=== PATIENT | male | born 1940 | race Caucasian/White ===

== ENCOUNTER 2024-03-08 19:40 | Observation (INO) ==
--- NOTE | 2024-03-08 19:50 | DR.CP ---
HPI Time Seen Time Seen by Provider: 03/08/24 19:50 Complaint Chief Complaint Doctor Comments: Patient lives by himself in a senior apartment. He has a son and daughter ( Daryl Ulloa and Melissa Mcmillan) the son lives in [place] and the daughter lives out of town. Every day patient contacts his daughter at a designated time. Two to three days ago patient fell to the floor in his apartment and was unable to get up. The son sent someone to check on him. Subsequently the son drove over to his aprtament in [place] and had to have the police break and enter to get access to the patient. Patient refused to go to the hospital. So Son brought him for [place] where he stayed for 2 days. Son stated that he observed that patient was very weak , he fell twice at son's house and after the second fall today Son called Sports Physiotherapist to bring the Patient to [facility] ED.Patient has a h/o: Cabg heart valve 2007, a rthritis,Dememntia,Dyslipdemia,hypertension. ROS Review of Systems Constitutional: Fever Eyes: No Symptoms Reported ENTM: No Symptoms Reported Respiratoy: No Symptoms Reported Cardiovascular: No Symptoms Reported Gastrointestinal/Abdominal: No Symptoms Reported Genitourinary: No Symptoms Reported Neurological: No Symptoms Reported Musculoskeletal: No Symptoms Reported Integumentary: No Symptoms Reported Hematologic/Lymphatic: No Symptoms Reported Endocrine: No Symptoms Reported Psychiatric: No Symptoms Reported All Other Systems: Reviewed and Negative PE Vitals Vitals: Vital Signs Temperature 98.6 F Temperature 99.1 F Pulse Rate [Apical] 76 Pulse Rate 61 Pulse Rate 60 Pulse Rate 53 Pulse Rate 53 Pulse Rate 54 Pulse Rate 53 Pulse Rate 55 Pulse Rate 55 Pulse Rate 54 Pulse Rate 55 Pulse Rate 55 Pulse Rate 55 Pulse Rate 56 Pulse Rate 61 Pulse Rate 59 Pulse Rate 61 Pulse Rate 56 Pulse Rate 57 Pulse Rate 57 Pulse Rate 57 Pulse Rate 58 Pulse Rate 64 Pulse Rate 66 Pulse Rate 67 Pulse Rate 66 Pulse Rate 65 Pulse Rate 64 Pulse Rate 66 Pulse Rate 68 Pulse Rate 71 Pulse Rate 74 Pulse Rate 74 Pulse Rate 73 Pulse Rate 81 Respiratory Rate 10 Respiratory Rate 9 Respiratory Rate 14 Respiratory Rate 15 Respiratory Rate 13 Respiratory Rate 14 Respiratory Rate 15 Respiratory Rate 18 Respiratory Rate 17 Respiratory Rate 15 Respiratory Rate 15 Respiratory Rate 15 Respiratory Rate 13 Respiratory Rate 15 Respiratory Rate 12 Respiratory Rate 25 Respiratory Rate 18 Respiratory Rate 12 Respiratory Rate 15 Respiratory Rate 19 Respiratory Rate 16 Respiratory Rate 14 Respiratory Rate 20 Blood Pressure [Right Arm] 106/65 Blood Pressure 124/60 Blood Pressure 124/58 Blood Pressure 124/55 Blood Pressure 132/60 Blood Pressure 120/60 Blood Pressure 121/60 Blood Pressure 111/54 Blood Pressure 105/56 Blood Pressure 115/50 Blood Pressure 111/56 Blood Pressure 118/56 Blood Pressure 120/58 Blood Pressure 111/54 Blood Pressure 124/57 Blood Pressure 121/56 Blood Pressure 105/58 Blood Pressure 105/58 Blood Pressure 101/58 Blood Pressure 101/58 Blood Pressure 101/58 Blood Pressure 108/56 Blood Pressure 108/56 Blood Pressure 108/56 Blood Pressure 96/55 Blood Pressure 96/55 Blood Pressure 99/56 Blood Pressure 99/56 Blood Pressure 103/50 Blood Pressure 105/58 Blood Pressure 120/56 Blood Pressure 101/54 Blood Pressure 76/47 Blood Pressure 101/56 Blood Pressure 105/57 Blood Pressure 105/57 Blood Pressure 95/55 Blood Pressure 87/51 Blood Pressure 94/53 Blood Pressure 94/53 Blood Pressure 102/55 O2 Sat by Pulse Oximetry 100 O2 Sat by Pulse Oximetry 99 O2 Sat by Pulse Oximetry 100 O2 Sat by Pulse Oximetry 100 O2 Sat by Pulse Oximetry 99 O2 Sat by Pulse Oximetry 99 O2 Sat by Pulse Oximetry 99 O2 Sat by Pulse Oximetry 99 O2 Sat by Pulse Oximetry 99 O2 Sat by Pulse Oximetry 99 O2 Sat by Pulse Oximetry 100 O2 Sat by Pulse Oximetry 99 O2 Sat by Pulse Oximetry 100 O2 Sat by Pulse Oximetry 100 O2 Sat by Pulse Oximetry 100 O2 Sat by Pulse Oximetry 100 O2 Sat by Pulse Oximetry 100 O2 Sat by Pulse Oximetry 100 O2 Sat by Pulse Oximetry 100 O2 Sat by Pulse Oximetry 100 O2 Sat by Pulse Oximetry 100 O2 Sat by Pulse Oximetry 100 O2 Sat by Pulse Oximetry 97 O2 Sat by Pulse Oximetry 98 General Limitations: No Limitations General Appearance: Alert and In No Apparent Distress Head Head Exam: Normal Inspection Eyes Eye exam: Normal Appearance ENT ENT Exam: Normal Exam Chest Chest Inspection: Normal Inspection Respiratory Respiratory Exam: Normal Lung Sounds Bilat Respiratory Exam: Bilateral: Clear to Auscultation Cardiovascular Cardiovascular Exam: Regular Rate and Normal Rhythm Pulse: Normal Edema: Normal Abdominal Exam Abdominal Exam: Normal Inspection, Normal Bowel Sounds and Soft Extremities Extremities Exam: Normal Inspection Back Back Exam: Normal Inspection Neurologic Neurological Exam: Alert and Oriented X3 Psychiatric Psychiatric Exam: Normal Affect and Normal Mood Skin Skin Exam: Warm, Dry, Intact and Normal Color MDM Differential Diagnosis Differential Diagnosis: CHF, Myocardial Infarction, Pancreatitis, Pneumonia and Pulmonary Embolus COURSE Treatment Treatment: Patient was febrile temp 102 on arrival in the Ed he was given toradol 30mg iv and tylenol 1g iv. Patient was hypotensive enroute to the Ed and was receiving NS iv when he arrive in the Ed. Patient was given a 2nd liter IV bolus in the ED. Patient's CXR did not reveal an acute process,Brain CT w/o contrast did not reveal an acute process. Patient's labs and tests were reviewed. CMP: BUN 28/creat 2.18/alb 2.8, WBC: cbc 9.9,hgb 11.9,Hct 36.5,D-dimer 7.43,CRP 65.7,Lactic acid 1.3,Covid-19 neg,[id number]. 04:20 Patient's mentation and VS have improved. Discussed case with Dr Ackerman. Dr Ackerman has accepted patient to his service for further evaluation. ROR Labs Reviewed Laboratory Results Reviewed?: Yes 03/08/24 20:55 03/08/24 20:55 Laboratory: WBC 9.9 X10^3/uL (3.6-10.0) 03/08/24 20:55 RBC 4.28 X10^6/uL (4.7-6.0) L 03/08/24 20:55 Hgb 11.9 g/dL (13.5-18.0) L 03/08/24 20:55 Hct 36.5 % (42.0-54.0) L 03/08/24 20:55 MCV 85.3 fL (80.0-100.0) 03/08/24 20:55 MCH 27.8 pg (27.0-34.0) 03/08/24 20:55 MCHC 32.6 g/dL (33.0-35.0) L 03/08/24 20:55 RDW 17.4 % (11.6-16.5) H 03/08/24 20:55 Plt Count 137 X10^3/uL (150.0-450.0) L 03/08/24 20:55 MPV 8.7 fL (7.4-11.0) 03/08/24 20:55 Neut % (Auto) 88.8 % (42.0-75.0) H 03/08/24 20:55 Lymph % (Auto) 3.9 % (21.0-51.0) L 03/08/24 20:55 [place] % (Auto) 6.5 % (0.0-13.0) 03/08/24 20:55 Eos % (Auto) 0.1 % (0.9-2.9) L 03/08/24 20:55 Baso % (Auto) 0.7 % (0.2-1.0) 03/08/24 20:55 Neut # (Auto) 8.8 x10^3/uL (2.2-4.8) H 03/08/24 20:55 Lymph # (Auto) 0.4 X10^3/uL (1.3-2.9) L 03/08/24 20:55 [place] # (Auto) 0.6 x10^3/uL (0.3-0.8) 03/08/24 20:55 Eos # (Auto) 0.0 x10^3/uL (0.0-0.2) 03/08/24 20:55 Baso # (Auto) 0.1 X10^3/uL (0.0-0.1) 03/08/24 20:55 Absolute Nucleated RBC 0.0 /100WBC 03/08/24 20:55 PT 15.1 SECONDS (11.8-14.3) 03/08/24 20:55 INR Target Range - 03/08/24 20:55 INR 1.22 (0.8-1.3) 03/08/24 20:55 APTT 28.1 SECONDS (22.9-36.5) 03/08/24 20:55 PTT Comment - 03/08/24 20:55 D-Dimer 7.43 ug/ml (0.0-0.57) H 03/08/24 20:55 Sodium 137 mmol/L (136-145) 03/08/24 20:55 Corrected Sodium TNP 03/08/24 20:55 Potassium 4.8 mmol/L (3.5-5.1) 03/08/24 20:55 Chloride 103 mmol/L (98-107) 03/08/24 20:55 Carbon Dioxide 27.6 mmol/L (21-32) 03/08/24 20:55 BUN 28 mg/dL (7-18) H 03/08/24 20:55 Creatinine 2.18 mg/dL (0.70-1.30) H 03/08/24 20:55 Est GFR (MDRD) Af Amer 37 (>60) L 03/08/24 20:55 Est GFR (MDRD) Non-Af 31 (>60) L 03/08/24 20:55 Glucose 104 mg/dL (65-99) H 03/08/24 20:55 Lactic Acid 1.3 mmol/L (0.4-2.0) 03/08/24 20:55 Calcium 8.2 mg/dL (8.5-10.1) L 03/08/24 20:55 Corrected Calcium 9.2 mg/dL (8.5-10.1) 03/08/24 20:55 Total Bilirubin 0.70 mg/dL (0.2-1.0) 03/08/24 20:55 AST 99 Units/L (15-37) H 03/08/24 20:55 ALT 30 Units/L (12-78) 03/08/24 20:55 Alkaline Phosphatase 64 Units/L (46-116) 03/08/24 20:55 Creatine Kinase 3809 Units/L (39-308) H 03/08/24 20:55 Troponin I High Sens 41.5 ng/L (4.0-60.0) 03/08/24 20:55 C-Reactive Protein 65.70 mg/L (0-3.0) H 03/08/24 20:55 B-Natriuretic Peptide 106 pg/mL (0-79) H 03/08/24 20:55 Total Protein 6.8 g/dL (6.4-8.2) 03/08/24 20:55 Albumin 2.8 g/dL (3.4-5.0) L 03/08/24 20:55 Globulin 4.0 g/dL (2.5-4.5) 03/08/24 20:55 Albumin/Globulin Ratio 0.7 Ratio (1.1-2.1) L 03/08/24 20:55 Amylase 64 Units/L (25-115) 03/08/24 20:55 Lipase 11 Units/L (16-77) L 03/08/24 20:55 Specimen Type Catherized urine 03/08/24 22:52 Urine Color Dark yellow (YELLOW) 03/08/24 22:52 Urine Appearance Cloudy (CLEAR) 03/08/24 22:52 Urine pH 5.0 (5.0 - 8.0) 03/08/24 22:52 Ur Specific [place] 1.020 (1.000-1.030) 03/08/24 22:52 Urine Protein 2+ (NEGATIVE) 03/08/24 22:52 Urine Glucose (UA) Negative (NEGATIVE) 03/08/24 22:52 Urine Ketones Negative (NEGATIVE) 03/08/24 22:52 Urine Blood 3+ (NEGATIVE) 03/08/24 22:52 Urine Nitrite Negative (NEGATIVE) 03/08/24 22:52 Urine Bilirubin 1+ (NEGATIVE) 03/08/24 22:52 Urine Urobilinogen 1+ (NORMAL) 03/08/24 22:52 Ur Leukocyte Esterase Negative (NEGATIVE) 03/08/24 22:52 Urine RBC 10-20 /HPF (0-3) A 03/08/24 22:52 Urine WBC 5-10 /HPF (0-5) A 03/08/24 22:52 Ur Squamous Epith Cells Few /HPF (NEGATIVE) 03/08/24 22:52 Amorphous Sediment 3+ /HPF (NEGATIVE) 03/08/24 22:52 Urine Bacteria Trace /HPF (NEGATIVE) 03/08/24 22:52 Hyaline Casts Few /LPF (NEGATIVE) 03/08/24 22:52 Coarse Granular Casts Few /HPF (NEGATIVE) 03/08/24 22:52 Urine Mucus Few /HPF (NEGATIVE) 03/08/24 22:52 Ur Culture Indicated? No/not indicated 03/08/24 22:52 SARS-CoV-2 (PCR) Negative (NEGATIVE) 03/08/24 20:11 Influenza Type A (PCR) Negative (NEGATIVE) 03/08/24 20:11 Influenza Type B (PCR) Negative (NEGATIVE) 03/08/24 20:11 RSV (PCR) Negative (NEGATIVE) 03/08/24 20:11 Opioid Opioid Risk Tool Total: 0 Total Score Risk Category: Low Risk Copyright: [address] predicting aberrant behaviors Discharge Plan Diagnosis Discharge Problem: Rhabdomyolysis, JEREMI (acute kidney injury), Elevated d-dimer Discharge Plan Patient Disposition: 09 ADMITTED INPATIENT Condition: Stable Prescriptions: No Action losartan 50 mg Tablet 50 mg PO QDAY tizanidine 2 mg Tablet 2 mg PO ONCE trazodone 50 mg Tablet 50 mg PO QHS cetirizine 10 mg Tablet 10 mg PO QDAY gabapentin 300 mg Capsule 300 mg PO TID doxazosin 4 mg Tablet 4 mg PO QDAY montelukast 10 mg Tablet 10 mg PO QDAY memantine 5 mg Tablet 5 mg PO QAM atorvastatin 10 mg Tablet 10 mg PO QHS warfarin 2 mg Tablet 2 mg PO QDAY warfarin [Coumadin] 5 mg Tablet 5 mg PO QDAY Health Concerns: Post Hospitalization: new medications and changes needed to prevent readmission or further decline. Pt educated and given instructions on all concerns. Plan of Treatment: Continue with present treatment and follow up plan. Pt is to keep follow up appointment as instructed and take medications as ordered. Orders to Discharge Patient Discharge Orders: Transfer (Routine); Ordered 03/09/24 Ordered By: Apple Rausch Instructions Stand Alone Forms: Post Hospital Follow Up Care
[2024-03-08] MEDS ORDERED: LEVOPHED 8 MG/250 ML IV *PREMIX 8 MG/250 ML PLAST..BAG IV PRN (20:13)
--- NOTE | 2024-03-08 20:16 | EKG ---
Test Reason : syncope Blood Pressure : */* mmHG Vent. Rate : 87 BPM Atrial Rate : 87 BPM P-R Int : 308 ms QRS Dur : 140 ms QT Int : 366 ms P-R-T Axes : 28 -61 41 degrees QTc Int : 440 ms Sinus rhythm with 1st degree AV block Right bundle branch block Left anterior fascicular block Bifascicular block Abnormal ECG No previous ECGs available Confirmed by Gus Donnelly ([id number]) on 03/14/2024 7:15:09 AM Referred By: Confirmed By: Gus Donnelly
[2024-03-08] MEDS: NS 1,000 ML IV 1,000 ML IV ONE (20:20)
[2024-03-08] MEDS: OFIRMEV IV 1000 MG VIAL 1,000 MG/100 ML VIAL IV ONE (20:30)
[2024-03-08] MEDS: TORADOL 30 MG VIAL IVP ONE (20:31)
[2024-03-08 21:29] LABS: BASOPHILS # (AUTO) 0.1 X10^3/uL (0.0-0.1); BASOPHILS % (AUTO) 0.7 % (0.2-1.0); EOSINOPHILS % (AUTO) 0.1 % (0.9-2.9); HEMATOCRIT 36.5 % (42.0-54.0); HEMOGLOBIN 11.9 g/dL (13.5-18.0); LYMPHOCYTES # (AUTO) 0.4 X10^3/uL (1.3-2.9); LYMPHOCYTES % (AUTO) 3.9 % (21.0-51.0); MEAN CORPUSCULAR HEMOGLOBIN 27.8 pg (27.0-34.0); MEAN CORPUSCULAR HGB CONC 32.6 g/dL (33.0-35.0); MEAN CORPUSCULAR VOLUME 85.3 fL (80.0-100.0); MEAN PLATELET VOLUME 8.7 fL (7.4-11.0); MONOCYTES # (AUTO) 0.6 x10^3/uL (0.3-0.8); MONOCYTES % (AUTO) 6.5 % (0.0-13.0); NEUTROPHILS # (AUTO) 8.8 x10^3/uL (2.2-4.8); NEUTROPHILS % (AUTO) 88.8 % (42.0-75.0); PLATELET COUNT 137 X10^3/uL (150.0-450.0); RED BLOOD COUNT 4.28 X10^6/uL (4.7-6.0); RED CELL DISTRIBUTION WIDTH 17.4 % (11.6-16.5); WHITE BLOOD COUNT 9.9 X10^3/uL (3.6-10.0)
[2024-03-08 21:37] LABS: INR 1.22 (0.8-1.3)
[2024-03-08 21:51] LABS: ALANINE AMINOTRANSFERASE 30 Units/L (12-78); ALBUMIN 2.8 g/dL (3.4-5.0); ALKALINE PHOSPHATASE 64 Units/L (46-116); AMYLASE 64 Units/L (25-115); ASPARTATE AMINO TRANSFERASE 99 Units/L (15-37); BLOOD UREA NITROGEN 28 mg/dL (7-18); CALCIUM 8.2 mg/dL (8.5-10.1); CARBON DIOXIDE 27.6 mmol/L (21-32); CHLORIDE 103 mmol/L (98-107); COR CA(FOR HYPOALB) 9.2 mg/dL (8.5-10.1); CREATININE 2.18 mg/dL (0.70-1.30); GLUCOSE 104 mg/dL (65-99); LIPASE 11 Units/L (16-77); POTASSIUM 4.8 mmol/L (3.5-5.1); SODIUM 137 mmol/L (136-145); TOTAL PROTEIN 6.8 g/dL (6.4-8.2); eGFR NON BLACK RACES 31 (>60)
[2024-03-08 21:52] LABS: CREATINE KINASE 3809 Units/L (39-308)
--- NOTE | 2024-03-08 21:57 | RAD ---
EXAM:FRONTAL VIEW CHEST X-RAYHISTORY:syncope;COMPARISON:None. r.br.br.br.br consolidation is seen.The heart size is within normal limits.The mediastinum is unremarkable.There is no evidence of pleural effusion or gross pneumothorax.The trachea is midline.IMPRESSION:No focal consolidation is seen.The heart size is normal.THIS IS AN ELECTRONICALLY VERIFIED FINAL REPORT03/08/2024 9:53 PM - Electronically signed by Segundo Morales MD
--- NOTE | 2024-03-08 21:58 | CT ---
EXAM:BRAIN W/O CONHISTORY:syncope;COMPARISON:None. TECHNIQUE:Nonenhanced spiral CT imaging was performed through the head and axial, coronal, and sagittal CT images were generated.FINDINGS:The ventricles and sulci are prominent. There is hypodensity in the periventricular white matter compatible with small-vessel ischemic disease. The brain parenchyma otherwise has normal density. There is no sulcal effacement or focal loss of the encinas-white junction to suggest acute infarct. There is no intracranial hemorrhage. There is no mass effect or midline shift. The calvarium is intact. Mastoid air cells and middle ear cavities are clear. The paranasal sinuses are clear.IMPRESSION:No acute abnormality.THIS IS AN ELECTRONICALLY VERIFIED FINAL REPORT03/08/2024 9:55 PM - Electronically signed by Bryan Pedersen MD
[2024-03-08 23:16] LABS: BILIRUBIN,URINE 1+ (NEGATIVE); BLOOD/HEMOGLOBIN,URINE 3+ (NEGATIVE); GLUCOSE, URINE NEGATIVE (NEGATIVE); KETONES,URINE NEGATIVE (NEGATIVE); LEUKOCYTE ESTERASE ,URINE NEGATIVE (NEGATIVE); NITRITES,URINE NEGATIVE (NEGATIVE); PROTEIN,URINE 2+ (NEGATIVE); UROBILINOGEN,URINE 1+ (NORMAL)
[2024-03-08 23:29] LABS: APPEARANCE,URINE CLOUDY (CLEAR); COLOR,URINE DARK YELLOW (YELLOW)
[2024-03-08 23:30] LABS: BACTERIA,URINE TRACE /HPF (NEGATIVE); COARSE GRANULAR CASTS,URINE FEW /HPF (NEGATIVE); HYALINE CASTS, URINE FEW /LPF (NEGATIVE); SQUAMOUS EPITHELIAL CELL,UR FEW /HPF (NEGATIVE)
--- NOTE | 2024-03-09 04:35 | EKG ---
Test Reason : altered mental status Blood Pressure : */* mmHG Vent. Rate : 57 BPM Atrial Rate : 57 BPM P-R Int : 344 ms QRS Dur : 146 ms QT Int : 458 ms P-R-T Axes : 5 -50 53 degrees QTc Int : 445 ms Sinus bradycardia with 1st degree AV block Right bundle branch block Left anterior fascicular block Bifascicular block Abnormal ECG When compared with ECG of 08-MAR-2024 20:12, (Unconfirmed) Vent. rate has decreased BY 30 BPM Confirmed by Luis Enrique Burch MD ([id number]) on 03/09/2024 7:42:43 AM Referred By: Confirmed By: Luis Enrique Burch MD
[2024-03-09] MEDS: NS 1,000 ML IV 1,000 ML IV SCH (05:37)
[2024-03-09 06:18] VITALS: BMI 24.5
[2024-03-09 06:34] LABS: BASOPHILS % (AUTO) 0.4 % (0.2-1.0); EOSINOPHILS # (AUTO) 0.1 x10^3/uL (0.0-0.2); EOSINOPHILS % (AUTO) 1.2 % (0.9-2.9); HEMATOCRIT 37.9 % (42.0-54.0); HEMOGLOBIN 12.3 g/dL (13.5-18.0); LYMPHOCYTES # (AUTO) 0.9 X10^3/uL (1.3-2.9); LYMPHOCYTES % (AUTO) 9.1 % (21.0-51.0); MEAN CORPUSCULAR HEMOGLOBIN 27.9 pg (27.0-34.0); MEAN CORPUSCULAR HGB CONC 32.5 g/dL (33.0-35.0); MEAN CORPUSCULAR VOLUME 85.8 fL (80.0-100.0); MEAN PLATELET VOLUME 8.4 fL (7.4-11.0); MONOCYTES % (AUTO) 10.4 % (0.0-13.0); NEUTROPHILS # (AUTO) 7.5 x10^3/uL (2.2-4.8); NEUTROPHILS % (AUTO) 78.9 % (42.0-75.0); PLATELET COUNT 132 X10^3/uL (150.0-450.0); RED BLOOD COUNT 4.42 X10^6/uL (4.7-6.0); RED CELL DISTRIBUTION WIDTH 17.1 % (11.6-16.5); WHITE BLOOD COUNT 9.5 X10^3/uL (3.6-10.0)
[2024-03-09 06:44] LABS: ALANINE AMINOTRANSFERASE 35 Units/L (12-78); ALBUMIN 2.8 g/dL (3.4-5.0); ALKALINE PHOSPHATASE 66 Units/L (46-116); ASPARTATE AMINO TRANSFERASE 109 Units/L (15-37); BLOOD UREA NITROGEN 30 mg/dL (7-18); CALCIUM 8.4 mg/dL (8.5-10.1); CARBON DIOXIDE 24.8 mmol/L (21-32); CHLORIDE 105 mmol/L (98-107); COR CA(FOR HYPOALB) 9.4 mg/dL (8.5-10.1); CREATININE 2.01 mg/dL (0.70-1.30); GLUCOSE 86 mg/dL (65-99); POTASSIUM 4.1 mmol/L (3.5-5.1); SODIUM 138 mmol/L (136-145); TOTAL PROTEIN 6.9 g/dL (6.4-8.2); eGFR NON BLACK RACES 34 (>60)
[2024-03-09] MEDS: NAMENDA TAB 10 MG PO SCH (08:23)
[2024-03-09] MEDS: ZyrTEC TAB 10 MG PO SCH (08:24)
[2024-03-09] MEDS: COZAAR PO SCH (08:24)
[2024-03-09] MEDS: NEURONTIN CAP 300 MG PO SCH (08:24)
[2024-03-09] MEDS: SINGULAIR TAB 10 MG PO SCH (08:25)
[2024-03-09] MEDS: CARDURA PO SCH (08:25)
[2024-03-09] MEDS: COUMADIN TAB 5 MG (JANTOVEN) PO SCH (08:29)
[2024-03-09] MEDS: COUMADIN TAB 2 MG (JANTOVEN) PO SCH (08:29)
[2024-03-09] MEDS: ZANAFLEX PO ONE (08:30)
[2024-03-09] MEDS ORDERED: MEMANTINE 5 MG PO SCH (09:00)
[2024-03-09] MEDS: LEVOPHED 8 MG/250 ML IV *PREMIX 8 MG/250 ML PLAST..BAG IV ONE (09:19)
[2024-03-09] MEDS: OFIRMEV IV 1000 MG VIAL 1,000 MG/100 ML VIAL IV ONE (09:19)
[2024-03-09] MEDS: NS 1,000 ML IV 1,000 ML ONE ×2 (09:20→09:21)
[2024-03-09] MEDS: TORADOL 30 MG VIAL ONE (09:20)
[2024-03-09] MEDS: LIPITOR TAB 10 MG PO SCH (21:23)
[2024-03-09] MEDS: DESYREL PO SCH (21:23)
--- NOTE | 2024-03-09 22:00 | DR.H&P ---
H&P History & Physical for Day of: H&P Date: 03/09/24 Chief Complaint Chief Complaint: Hypotension/altered mental status/fever/status post fall History of Present Illness History of Present Illness: This is a pleasant 83-year-old white male who lives alone in a senior apartment. He has a son, Daryl Ulloa, who lives in [place], [place], and a daughter, Melissa Mcmillan, who lives out of town. The patient fell in his apartment a few days ago and was unable to get up. The son checked on him and had to call the police to enter the apartment. The patient refused to go to the hospital at that time. Later, the son brought him to [place], where he stayed for 2 days. The son observed that the patient was very weak and had fallen twice. After the second fall, the son called emergency medical attendant (beauty director) to bring the patient to the [facility] ED. The patient has a medical history of coronary artery bypass grafting and heart valve surgery in 2007, arthritis, dementia, dyslipidemia, and hypertension. On arrival at the [facility] emergency department, the patient was found to have a fever of 102 F and was given Toradol 30mg IV and Tylenol 1g IV. He was also hypotensive and received normal saline (NS) IV en route to the ED. A second liter IV bolus was given in the ED. The patient's chest X-ray did not show an acute process, and a brain CT without contrast also did not reveal an acute process. His lab results were as follows: BUN 28, creatinine 2.18, albumin 2.8, WBC 9.9, neutrophil% 78.9%, Hb 11.9, hematocrit 36.5, D-dimer 7.43, CRP 65.7, lactic acid 1.3, COVID-19 negative, and CK 3809. I was called a little after 4:00 this morning by the ER physician who informed me of the above. She states that his mental status had improved this time; he was no longer confused, and his vital signs had also stabilized. He no longer had hypotension after receiving multiple boluses of normal saline IV. I rev iewed the patient's labs, and we have not found a source of infection for the patient's fever. Urinalysis was negative for infection, and his chest x-ray was clear. Blood cultures x 2 were drawn and are currently pending. It is a possibility that the patient could have sepsis. He had no more fevers since just after 9:00 last night when it was seen that he had a low-grade temperature. He had some intermittent hypotension up until about 1:00 this morning, and after that, it has been fairly stable since and trending upwards. This morning, the patient reports feeling much better. We do not have a CK level, but we will wait until tomorrow to repeat it to see if his rhabdomyolysis has resolved. His hydration status has improved, and his creatinine is down to 2.01. His white blood cell count remained stable at 9500 today. We will continue his current treatment and follow up with his urine and blood cultures to ensure we do not see an infection. I will repeat his chest x-ray tomorrow to ensure that after rehydrating him, we do not see any infiltrates on the chest x- ray. Repeat the patient's BNP tomorrow morning to make sure it is not trending up too high since it is slightly elevated already. Past Medical History Past Medical History: Arthritis, COPD, Dementia, Dyslipidemia and Hypertension Past Surgical History Surgical History: CABG/Valve Surgery Social History Alcohol Use: None Drug Use: None Medications Home Medications: Home Medications Medication Instructions Recorded Confirmed Type atorvastatin 10 mg tablet 10 mg PO QHS 03/08/24 03/08/24 History cetirizine 10 mg tablet 10 mg PO QDAY 03/08/24 03/08/24 History doxazosin 4 mg tablet 4 mg PO QDAY 03/08/24 03/08/24 History gabapentin 300 mg capsule 300 mg PO TID 03/08/24 03/08/24 History losartan 50 mg tablet 50 mg PO QDAY 03/08/24 03/08/24 History memantine 5 mg tablet 5 mg PO QAM 03/08/24 03/08/24 History montelukast 10 mg tablet 10 mg PO QDAY 03/08/24 03/08/24 History tizanidine 2 mg tablet 2 mg PO ONCE 03/08/24 03/08/24 History trazodone 50 mg tablet 50 mg PO QHS 03/08/24 03/08/24 History warfarin 2 mg tablet 2 mg PO QDAY 03/08/24 03/08/24 History warfarin 5 mg tablet 5 mg PO QDAY 03/08/24 03/08/24 History Allergies Allergies Allergy/AdvReac Type Severity Reaction Status Date / Time No Known Allergies Allergy Verified 03/08/24 20:37 Labs 03/09/24 06:19 03/09/24 06:19 Labs: Laboratory WBC 9.5 X10^3/uL (3.6-10.0) 03/09/24 06:19 RBC 4.42 X10^6/uL (4.7-6.0) L 03/09/24 06:19 Hgb 12.3 g/dL (13.5-18.0) L 03/09/24 06:19 Hct 37.9 % (42.0-54.0) L 03/09/24 06:19 MCV 85.8 fL (80.0-100.0) 03/09/24 06:19 MCH 27.9 pg (27.0-34.0) 03/09/24 06:19 MCHC 32.5 g/dL (33.0-35.0) L 03/09/24 06:19 RDW 17.1 % (11.6-16.5) H 03/09/24 06:19 Plt Count 132 X10^3/uL (150.0-450.0) L 03/09/24 06:19 MPV 8.4 fL (7.4-11.0) 03/09/24 06:19 Neut % (Auto) 78.9 % (42.0-75.0) H 03/09/24 06:19 Lymph % (Auto) 9.1 % (21.0-51.0) L 03/09/24 06:19 [place] % (Auto) 10.4 % (0.0-13.0) 03/09/24 06:19 Eos % (Auto) 1.2 % (0.9-2.9) 03/09/24 06:19 Baso % (Auto) 0.4 % (0.2-1.0) 03/09/24 06:19 Neut # (Auto) 7.5 x10^3/uL (2.2-4.8) H 03/09/24 06:19 Lymph # (Auto) 0.9 X10^3/uL (1.3-2.9) L 03/09/24 06:19 [place] # (Auto) 1.0 x10^3/uL (0.3-0.8) H 03/09/24 06:19 Eos # (Auto) 0.1 x10^3/uL (0.0-0.2) 03/09/24 06:19 Baso # (Auto) 0.0 X10^3/uL (0.0-0.1) 03/09/24 06:19 Absolute Nucleated RBC 0.0 /100WBC 03/09/24 06:19 PT 15.1 SECONDS (11.8-14.3) 03/08/24 20:55 INR Target Range - 03/08/24 20:55 INR 1.22 (0.8-1.3) 03/08/24 20:55 APTT 28.1 SECONDS (22.9-36.5) 03/08/24 20:55 PTT Comment - 03/08/24 20:55 D-Dimer 7.43 ug/ml (0.0-0.57) H 03/08/24 20:55 Sodium 138 mmol/L (136-145) 03/09/24 06:19 Corrected Sodium TNP 03/09/24 06:19 Potassium 4.1 mmol/L (3.5-5.1) 03/09/24 06:19 Chloride 105 mmol/L (98-107) 03/09/24 06:19 Carbon Dioxide 24.8 mmol/L (21-32) 03/09/24 06:19 BUN 30 mg/dL (7-18) H 03/09/24 06:19 Creatinine 2.01 mg/dL (0.70-1.30) H 03/09/24 06:19 Est GFR (MDRD) Af Amer 41 (>60) L 03/09/24 06:19 Est GFR (MDRD) Non-Af 34 (>60) L 03/09/24 06:19 Glucose 86 mg/dL (65-99) 03/09/24 06:19 Lactic Acid 1.3 mmol/L (0.4-2.0) 03/08/24 20:55 Calcium 8.4 mg/dL (8.5-10.1) L 03/09/24 06:19 Corrected Calcium 9.4 mg/dL (8.5-10.1) 03/09/24 06:19 Total Bilirubin 0.70 mg/dL (0.2-1.0) 03/09/24 06:19 AST 109 Units/L (15-37) H 03/09/24 06:19 ALT 35 Units/L (12-78) 03/09/24 06:19 Alkaline Phosphatase 66 Units/L (46-116) 03/09/24 06:19 Creatine Kinase 3809 Units/L (39-308) H 03/08/24 20:55 Troponin I High Sens 48.4 ng/L (4.0-60.0) 03/09/24 06:19 C-Reactive Protein 65.70 mg/L (0-3.0) H 03/08/24 20:55 B-Natriuretic Peptide 167 pg/mL (0-79) H 03/09/24 06:19 Total Protein 6.9 g/dL (6.4-8.2) 03/09/24 06:19 Albumin 2.8 g/dL (3.4-5.0) L 03/09/24 06:19 Globulin 4.1 g/dL (2.5-4.5) 03/09/24 06:19 Albumin/Globulin Ratio 0.7 Ratio (1.1-2.1) L 03/09/24 06:19 Amylase 64 Units/L (25-115) 03/08/24 20:55 Lipase 11 Units/L (16-77) L 03/08/24 20:55 Specimen Type Catherized urine 03/08/24 22:52 Urine Color Dark yellow (YELLOW) 03/08/24 22:52 Urine Appearance Cloudy (CLEAR) 03/08/24 22:52 Urine pH 5.0 (5.0 - 8.0) 03/08/24 22:52 Ur Specific [place] 1.020 (1.000-1.030) 03/08/24 22:52 Urine Protein 2+ (NEGATIVE) 03/08/24 22:52 Urine Glucose (UA) Negative (NEGATIVE) 03/08/24 22:52 Urine Ketones Negative (NEGATIVE) 03/08/24 22:52 Urine Blood 3+ (NEGATIVE) 03/08/24 22:52 Urine Nitrite Negative (NEGATIVE) 03/08/24 22:52 Urine Bilirubin 1+ (NEGATIVE) 03/08/24 22:52 Urine Urobilinogen 1+ (NORMAL) 03/08/24 22:52 Ur Leukocyte Esterase Negative (NEGATIVE) 03/08/24 22:52 Urine RBC 10-20 /HPF (0-3) A 03/08/24 22:52 Urine WBC 5-10 /HPF (0-5) A 03/08/24 22:52 Ur Squamous Epith Cells Few /HPF (NEGATIVE) 03/08/24 22:52 Amorphous Sediment 3+ /HPF (NEGATIVE) 03/08/24 22:52 Urine Bacteria Trace /HPF (NEGATIVE) 03/08/24 22:52 Hyaline Casts Few /LPF (NEGATIVE) 03/08/24 22:52 Coarse Granular Casts Few /HPF (NEGATIVE) 03/08/24 22:52 Urine Mucus Few /HPF (NEGATIVE) 03/08/24 22:52 Ur Culture Indicated? No/not indicated 03/08/24 22:52 SARS-CoV-2 (PCR) Negative (NEGATIVE) 03/08/24 20:11 Influenza Type A (PCR) Negative (NEGATIVE) 03/08/24 20:11 Influenza Type B (PCR) Negative (NEGATIVE) 03/08/24 20:11 RSV (PCR) Negative (NEGATIVE) 03/08/24 20:11 Review of Systems Constitutional: Fever, Chills, Sweats, Weakness and Malaise Eyes: No Symptoms Reported ENT: No Symptoms Reported Respiratory: No Symptoms Reported Cardiovascular: No Symptoms Reported Gastrointestinal: Nausea and Diarrhea; denies Abdominal Pain, Constipation or Melena Genitourinary: No Symptoms Reported Musculoskeletal: Back Pain Skin: No Symptoms Reported Neurological: No Symptoms Reported Physical Exam Vital Signs: Vital Signs Temperature 98.6 F Temperature 97.8 F Pulse Rate [Apical] 81 Pulse Rate [Apical] 67 Respiratory Rate 14 Respiratory Rate 18 Blood Pressure [Right Arm] 165/74 Blood Pressure [Right Arm] 140/63 O2 Sat by Pulse Oximetry 97 O2 Sat by Pulse Oximetry 97 Oriented: Normal, Time, Person and Place Eyes: Normal Ear: Normal Nose: Normal Respiratory: Clear Throughout Cardiovascular: Normal Auscultation: Bowel Sounds: Normal Palpation: Normal Tenderness: Normal Skin: Decreased Turgur Musculoskeletal: Back:Lumbar Psychiatric: Normal Affect: Normal Speech Pattern: Clear and Appropriate Assessment/Plan (1) Rhabdomyolysis: Status: Acute Plan: IV fluid hydration. Recheck CK tomorrow morning. (2) JEREMI (acute kidney injury): Status: Acute Plan: Continue IV fluid recheck CMP tomorrow morning (3) Elevated d-dimer: Status: Acute Plan: The patient needs a CTA to rule out PE given that he had a elevated D-dimer. His estimated GFR has been too low in order to do the CTA PA at this time. We will continue IV hydration and plan on doing this once his GFR is 40 or above. (4) Dehydration: Status: Acute Plan: Rehydration with IV fluid. (5) Memory loss: Status: Acute Plan: Resume memantine 5 mg p.o. every morning. Review H&P Reviewed: Yes Patient was examined?: Yes
[2024-03-10 06:01] LABS: BASOPHILS % (AUTO) 0.5 % (0.2-1.0); EOSINOPHILS # (AUTO) 0.1 x10^3/uL (0.0-0.2); EOSINOPHILS % (AUTO) 1.3 % (0.9-2.9); HEMATOCRIT 33.7 % (42.0-54.0); HEMOGLOBIN 11.1 g/dL (13.5-18.0); LYMPHOCYTES # (AUTO) 0.7 X10^3/uL (1.3-2.9); LYMPHOCYTES % (AUTO) 8.6 % (21.0-51.0); MEAN CORPUSCULAR HEMOGLOBIN 28.2 pg (27.0-34.0); MEAN CORPUSCULAR VOLUME 85.5 fL (80.0-100.0); MEAN PLATELET VOLUME 8.4 fL (7.4-11.0); MONOCYTES # (AUTO) 0.7 x10^3/uL (0.3-0.8); MONOCYTES % (AUTO) 9.5 % (0.0-13.0); NEUTROPHILS # (AUTO) 6.2 x10^3/uL (2.2-4.8); NEUTROPHILS % (AUTO) 80.1 % (42.0-75.0); PLATELET COUNT 136 X10^3/uL (150.0-450.0); RED BLOOD COUNT 3.95 X10^6/uL (4.7-6.0); RED CELL DISTRIBUTION WIDTH 17.1 % (11.6-16.5); WHITE BLOOD COUNT 7.7 X10^3/uL (3.6-10.0)
[2024-03-10 06:32] LABS: ALANINE AMINOTRANSFERASE 34 Units/L (12-78); ALBUMIN 2.4 g/dL (3.4-5.0); ALKALINE PHOSPHATASE 56 Units/L (46-116); ASPARTATE AMINO TRANSFERASE 86 Units/L (15-37); BLOOD UREA NITROGEN 24 mg/dL (7-18); CALCIUM 7.9 mg/dL (8.5-10.1); CARBON DIOXIDE 26.4 mmol/L (21-32); CHLORIDE 109 mmol/L (98-107); COR CA(FOR HYPOALB) 9.2 mg/dL (8.5-10.1); CREATININE 1.28 mg/dL (0.70-1.30); GLUCOSE 92 mg/dL (65-99); MAGNESIUM 1.8 mg/dL (2.0-2.9); POTASSIUM 4.3 mmol/L (3.5-5.1); SODIUM 140 mmol/L (136-145); TOTAL PROTEIN 6.5 g/dL (6.4-8.2); eGFR NON BLACK RACES 57 (>60)
[2024-03-10 06:33] LABS: CREATINE KINASE 2328 Units/L (39-308)
[2024-03-10] MEDS ORDERED: CONSULT PHARMACY - POTASSIUM & MAGNESIUM XX SCH (08:00)
[2024-03-10] MEDS: NS 1,000 ML IV 1,000 ML with MAGNESIUM SULFATE 50% INJ VIAL 1 G IV SCH (09:42)
--- NOTE | 2024-03-10 16:03 | CT ---
EXAM:CTA, CHESTHISTORY:ELEVATED D-DIMER;COMPARISON:None.TECHNIQUE:Follow ing the intravenous administration of iodinated contrast, spiral CT imaging was performed through the chest and axial, coronal, and sagittal CT images were generated. Multi planar 3D MIP images were also generated.FINDINGS:Heart size is mildly enlarged. There is no right heart strain identified. There is excellent contrast enhancement in the pulmonary circulation and there is no pulmonary embolus. Ascending aorta is aneurysmal at 4.1 cm in diameter. There is no dissection. There are reactive sized mediastinal lymph nodes. The airways are clear. There is some mild bronchial wall thickening. There is emphysema. There is some dependent basilar opacities suggestive of atelectasis or possibly interstitial fibrotic change. There is no pleural effusion or pneumothorax. There are low-density liver lesions which appear to be benign. There is cholelithiasis but no cholecystitis. There is no worrisome bone marrow lesion.IMPRESSION:1. Negative for pulmonary embolus.2. 4.1 cm ascending aortic aneurysm.3. Bronchial wall thickening, emphysema, peripheral atelectasis versus fibrotic interstitial change.4. Cholelithiasis without cholecystitis.THIS IS AN ELECTRONICALLY VERIFIED FINAL REPORT03/10/2024 4:00 PM - Electronically signed by Bryan Pedersen MD
[2024-03-10] MEDS: MILK OF MAGNESIA PO PRN (21:35)
[2024-03-11 06:26] LABS: BASOPHILS % (AUTO) 0.5 % (0.2-1.0); EOSINOPHILS # (AUTO) 0.1 x10^3/uL (0.0-0.2); EOSINOPHILS % (AUTO) 1.6 % (0.9-2.9); HEMATOCRIT 32.8 % (42.0-54.0); LYMPHOCYTES # (AUTO) 0.7 X10^3/uL (1.3-2.9); LYMPHOCYTES % (AUTO) 9.3 % (21.0-51.0); MEAN CORPUSCULAR HEMOGLOBIN 28.4 pg (27.0-34.0); MEAN CORPUSCULAR HGB CONC 33.4 g/dL (33.0-35.0); MEAN CORPUSCULAR VOLUME 84.9 fL (80.0-100.0); MEAN PLATELET VOLUME 8.7 fL (7.4-11.0); MONOCYTES # (AUTO) 0.8 x10^3/uL (0.3-0.8); MONOCYTES % (AUTO) 9.4 % (0.0-13.0); NEUTROPHILS # (AUTO) 6.3 x10^3/uL (2.2-4.8); NEUTROPHILS % (AUTO) 79.2 % (42.0-75.0); PLATELET COUNT 147 X10^3/uL (150.0-450.0); RED BLOOD COUNT 3.86 X10^6/uL (4.7-6.0); RED CELL DISTRIBUTION WIDTH 16.9 % (11.6-16.5)
[2024-03-11 06:49] LABS: ALANINE AMINOTRANSFERASE 41 Units/L (12-78); ALBUMIN 2.4 g/dL (3.4-5.0); ALKALINE PHOSPHATASE 55 Units/L (46-116); ASPARTATE AMINO TRANSFERASE 86 Units/L (15-37); BLOOD UREA NITROGEN 18 mg/dL (7-18); CARBON DIOXIDE 23.4 mmol/L (21-32); CHLORIDE 109 mmol/L (98-107); COR CA(FOR HYPOALB) 9.3 mg/dL (8.5-10.1); GLUCOSE 97 mg/dL (65-99); MAGNESIUM 1.9 mg/dL (2.0-2.9); POTASSIUM 4.4 mmol/L (3.5-5.1); SODIUM 140 mmol/L (136-145); TOTAL PROTEIN 6.1 g/dL (6.4-8.2); eGFR NON BLACK RACES > 60 (>60)
[2024-03-11 07:35] LABS: INR 1.17 (0.8-1.3)
[2024-03-11] MEDS ORDERED: CONSULT PHARMACY - POTASSIUM & MAGNESIUM XX SCH (08:00)
[2024-03-12 06:44] LABS: BASOPHILS # (AUTO) 0.1 X10^3/uL (0.0-0.1); BASOPHILS % (AUTO) 0.7 % (0.2-1.0); EOSINOPHILS # (AUTO) 0.2 x10^3/uL (0.0-0.2); EOSINOPHILS % (AUTO) 2.8 % (0.9-2.9); HEMATOCRIT 34.6 % (42.0-54.0); HEMOGLOBIN 11.3 g/dL (13.5-18.0); LYMPHOCYTES # (AUTO) 0.6 X10^3/uL (1.3-2.9); LYMPHOCYTES % (AUTO) 7.5 % (21.0-51.0); MEAN CORPUSCULAR HEMOGLOBIN 27.7 pg (27.0-34.0); MEAN CORPUSCULAR HGB CONC 32.6 g/dL (33.0-35.0); MEAN PLATELET VOLUME 8.4 fL (7.4-11.0); MONOCYTES # (AUTO) 0.8 x10^3/uL (0.3-0.8); MONOCYTES % (AUTO) 10.6 % (0.0-13.0); NEUTROPHILS # (AUTO) 6.1 x10^3/uL (2.2-4.8); NEUTROPHILS % (AUTO) 78.4 % (42.0-75.0); PLATELET COUNT 145 X10^3/uL (150.0-450.0); RED BLOOD COUNT 4.07 X10^6/uL (4.7-6.0); RED CELL DISTRIBUTION WIDTH 16.9 % (11.6-16.5); WHITE BLOOD COUNT 7.8 X10^3/uL (3.6-10.0)
[2024-03-12 06:54] LABS: ALANINE AMINOTRANSFERASE 44 Units/L (12-78); ALBUMIN 2.5 g/dL (3.4-5.0); ALKALINE PHOSPHATASE 57 Units/L (46-116); ASPARTATE AMINO TRANSFERASE 71 Units/L (15-37); BLOOD UREA NITROGEN 19 mg/dL (7-18); CALCIUM 7.9 mg/dL (8.5-10.1); CARBON DIOXIDE 23.1 mmol/L (21-32); CHLORIDE 109 mmol/L (98-107); COR CA(FOR HYPOALB) 9.1 mg/dL (8.5-10.1); CREATININE 1.01 mg/dL (0.70-1.30); GLUCOSE 97 mg/dL (65-99); MAGNESIUM 1.9 mg/dL (2.0-2.9); POTASSIUM 4.4 mmol/L (3.5-5.1); SODIUM 140 mmol/L (136-145); TOTAL PROTEIN 6.4 g/dL (6.4-8.2); eGFR NON BLACK RACES > 60 (>60)
[2024-03-12] MEDS ORDERED: CONSULT PHARMACY - POTASSIUM & MAGNESIUM XX SCH (07:00)
--- NOTE | 2024-03-12 07:43 | RAD ---
EXAM: Portable chest HISTORY: Rhabdomyolysis COMPARISON: 03/08/2024 chest x-ray, 03/10/2024 CTA chest FINDINGS: Patient is status post median sternotomy. Heart size is normal. [place] are normal. Lungs are mildl y hyperinflated but free of acute infiltrates. No pleural effusions identified. Bony thorax is unre markable. IMPRESSION: Lungs are mildly hyperinflated but clear THIS IS AN ELECTRONICALLY VERIFIED FINAL REPORT 03/12/2024 7:33 AM - Electronically signed by Román Leal MD
[2024-03-12] MEDS: NS 1,000 ML IV 1,000 ML with MAGNESIUM SULFATE 50% INJ VIAL 2 G IV SCH (08:55)
--- NOTE | 2024-03-12 09:51 | PCM.PROG ---
Progress Note Progress Note for Day of Date of Exam: 03/11/24 Subjective Subjective: The patient feels much better at this time. He has no new complaints this morning. His CK has come down in the 1999 from 3000. Will continue IV fluids and once his GFR is above 40 we will proceed with a CTA of the lungs to rule out PE since his D-dimer was elevated. No other changes at t his time. Past Medical Family Social History Allergies: Allergies No Known Allergies Allergy (Verified 03/08/24 20:37) Review of Systems ROS: No change since H&P Vital Signs and I&O's Vital Signs: Vital Signs Temperature 98.1 F Temperature 98.4 F Pulse Rate [Apical] 73 Pulse Rate [Apical] 75 Respiratory Rate 18 Respiratory Rate 20 Blood Pressure [Right Arm] 143/75 Blood Pressure [Right Arm] 151/69 O2 Sat by Pulse Oximetry 97 O2 Sat by Pulse Oximetry 96 Intake and Output: Intake & Output 03/09/24 03/10/24 03/11/24 03/12/24 11:59 11:59 11:59 11:59 Intake Total 2181 / 2181 1402 / 1402 2152 / 2152 Output Total 400 / 400 Balance -400 / -400 2181 / 2181 1402 / 1402 2152 / 2152 Physical Exam Oriented: Normal, Time, Person and Place Eyes: Normal Ear: Normal Nose: Normal Respiratory: Left, Inferior and Rhonchi Cardiovascular: Normal Auscultation: Bowel Sounds: Normal Tenderness: Normal Skin: Decreased Turgur Musculoskeletal: Back:Lumbar Psychiatric: Normal Affect: Normal Speech Pattern: Clear and Appropriate Laboratory and Diagnostics 03/12/24 06:15 03/12/24 06:15 Labs: 03/11/24 12:45 Sputum - Expectorated Sputum - Final 03/09/24 05:07 Urine,Catheterized Urine Culture - Final 03/08/24 20:55 Blood Blood Culture - Preliminary 03/08/24 21:05 Blood Blood Culture - Preliminary Laboratory WBC 7.8 X10^3/uL (3.6-10.0) 03/12/24 06:15 RBC 4.07 X10^6/uL (4.7-6.0) L 03/12/24 06:15 Hgb 11.3 g/dL (13.5-18.0) L 03/12/24 06:15 Hct 34.6 % (42.0-54.0) L 03/12/24 06:15 MCV 85.0 fL (80.0-100.0) 03/12/24 06:15 MCH 27.7 pg (27.0-34.0) 03/12/24 06:15 MCHC 32.6 g/dL (33.0-35.0) L 03/12/24 06:15 RDW 16.9 % (11.6-16.5) H 03/12/24 06:15 Plt Count 145 X10^3/uL (150.0-450.0) L 03/12/24 06:15 MPV 8.4 fL (7.4-11.0) 03/12/24 06:15 Neut % (Auto) 78.4 % (42.0-75.0) H 03/12/24 06:15 Lymph % (Auto) 7.5 % (21.0-51.0) L 03/12/24 06:15 [place] % (Auto) 10.6 % (0.0-13.0) 03/12/24 06:15 Eos % (Auto) 2.8 % (0.9-2.9) 03/12/24 06:15 Baso % (Auto) 0.7 % (0.2-1.0) 03/12/24 06:15 Neut # (Auto) 6.1 x10^3/uL (2.2-4.8) H 03/12/24 06:15 Lymph # (Auto) 0.6 X10^3/uL (1.3-2.9) L 03/12/24 06:15 [place] # (Auto) 0.8 x10^3/uL (0.3-0.8) 03/12/24 06:15 Eos # (Auto) 0.2 x10^3/uL (0.0-0.2) 03/12/24 06:15 Baso # (Auto) 0.1 X10^3/uL (0.0-0.1) 03/12/24 06:15 Absolute Nucleated RBC 0.0 /100WBC 03/12/24 06:15 PT 14.7 SECONDS (11.8-14.3) 03/11/24 05:38 INR Target Range - 03/11/24 05:38 INR 1.17 (0.8-1.3) 03/11/24 05:38 APTT 28.1 SECONDS (22.9-36.5) 03/08/24 20:55 PTT Comment - 03/08/24 20:55 D-Dimer 7.43 ug/ml (0.0-0.57) H 03/08/24 20:55 Sodium 140 mmol/L (136-145) 03/12/24 06:15 Corrected Sodium TNP 03/12/24 06:15 Potassium 4.4 mmol/L (3.5-5.1) 03/12/24 06:15 Chloride 109 mmol/L (98-107) H 03/12/24 06:15 Carbon Dioxide 23.1 mmol/L (21-32) 03/12/24 06:15 BUN 19 mg/dL (7-18) H 03/12/24 06:15 Creatinine 1.01 mg/dL (0.70-1.30) 03/12/24 06:15 Est GFR (MDRD) Af Amer > 60 (>60) 03/12/24 06:15 Est GFR (MDRD) Non-Af > 60 (>60) 03/12/24 06:15 Glucose 97 mg/dL (65-99) 03/12/24 06:15 Lactic Acid 1.3 mmol/L (0.4-2.0) 03/08/24 20:55 Calcium 7.9 mg/dL (8.5-10.1) L 03/12/24 06:15 Corrected Calcium 9.1 mg/dL (8.5-10.1) 03/12/24 06:15 Magnesium 1.9 mg/dL (2.0-2.9) L 03/12/24 06:15 Total Bilirubin 0.30 mg/dL (0.2-1.0) 03/12/24 06:15 AST 71 Units/L (15-37) H 03/12/24 06:15 ALT 44 Units/L (12-78) 03/12/24 06:15 Alkaline Phosphatase 57 Units/L (46-116) 03/12/24 06:15 Creatine Kinase 1744 Units/L (39-308) H 03/11/24 05:38 Troponin I High Sens 48.4 ng/L (4.0-60.0) 03/09/24 06:19 C-Reactive Protein 62.30 mg/L (0-3.0) H 03/11/24 05:38 B-Natriuretic Peptide 490 pg/mL (0-79) H 03/11/24 05:38 Total Protein 6.4 g/dL (6.4-8.2) 03/12/24 06:15 Albumin 2.5 g/dL (3.4-5.0) L 03/12/24 06:15 Globulin 3.9 g/dL (2.5-4.5) 03/12/24 06:15 Albumin/Globulin Ratio 0.6 Ratio (1.1-2.1) L 03/12/24 06:15 Amylase 64 Units/L (25-115) 03/08/24 20:55 Lipase 11 Units/L (16-77) L 03/08/24 20:55 Specimen Type Catherized urine 03/08/24 22:52 Urine Color Dark yellow (YELLOW) 03/08/24 22:52 Urine Appearance Cloudy (CLEAR) 03/08/24 22:52 Urine pH 5.0 (5.0 - 8.0) 03/08/24 22:52 Ur Specific [place] 1.020 (1.000-1.030) 03/08/24 22:52 Urine Protein 2+ (NEGATIVE) 03/08/24 22:52 Urine Glucose (UA) Negative (NEGATIVE) 03/08/24 22:52 Urine Ketones Negative (NEGATIVE) 03/08/24 22:52 Urine Blood 3+ (NEGATIVE) 03/08/24 22:52 Urine Nitrite Negative (NEGATIVE) 03/08/24 22:52 Urine Bilirubin 1+ (NEGATIVE) 03/08/24 22:52 Urine Urobilinogen 1+ (NORMAL) 03/08/24 22:52 Ur Leukocyte Esterase Negative (NEGATIVE) 03/08/24 22:52 Urine RBC 10-20 /HPF (0-3) A 03/08/24 22:52 Urine WBC 5-10 /HPF (0-5) A 03/08/24 22:52 Ur Squamous Epith Cells Few /HPF (NEGATIVE) 03/08/24 22:52 Amorphous Sediment 3+ /HPF (NEGATIVE) 03/08/24 22:52 Urine Bacteria Trace /HPF (NEGATIVE) 03/08/24 22:52 Hyaline Casts Few /LPF (NEGATIVE) 03/08/24 22:52 Coarse Granular Casts Few /HPF (NEGATIVE) 03/08/24 22:52 Urine Mucus Few /HPF (NEGATIVE) 03/08/24 22:52 Ur Culture Indicated? No/not indicated 03/08/24 22:52 SARS-CoV-2 (PCR) Negative (NEGATIVE) 03/08/24 20:11 Influenza Type A (PCR) Negative (NEGATIVE) 03/08/24 20:11 Influenza Type B (PCR) Negative (NEGATIVE) 03/08/24 20:11 RSV (PCR) Negative (NEGATIVE) 03/08/24 20:11 Radiology Reviewed: Yes Plan (1) Rhabdomyolysis: Status: Acute Narrative Support Text: improving. Plan: IV fluid hydration. Recheck CK tomorrow morning. (2) JEREMI (acute kidney injury): Status: Acute Narrative Support Text: improved. Plan: Continue IV fluid recheck CMP tomorrow morning (3) Elevated d-dimer: Status: Acute Plan: The patient needs a CTA to rule out PE given that he had a elevated D-dimer. His estimated GFR has been too low in order to do the CTA PA at this time. We will continue IV hydration and plan on doing this once his GFR is 40 or above. (4) Dehydration: Status: Acute Plan: Rehydration with IV fluid. (5) Memory loss: Status: Acute Plan: Resume memantine 5 mg p.o. every morning. (6) Rhonchi at left lung base: Status: Acute Plan: Check CXR this am.
[2024-03-12] MEDS: ULTRAM PO PRN (22:31)
[2024-03-13 00:47] VITALS: RESP 18
[2024-03-13 06:25] LABS: BASOPHILS % (AUTO) 0.6 % (0.2-1.0); EOSINOPHILS # (AUTO) 0.3 x10^3/uL (0.0-0.2); EOSINOPHILS % (AUTO) 4.2 % (0.9-2.9); HEMATOCRIT 31.6 % (42.0-54.0); HEMOGLOBIN 10.4 g/dL (13.5-18.0); LYMPHOCYTES # (AUTO) 0.7 X10^3/uL (1.3-2.9); LYMPHOCYTES % (AUTO) 10.4 % (21.0-51.0); MEAN CORPUSCULAR HEMOGLOBIN 28.1 pg (27.0-34.0); MEAN CORPUSCULAR VOLUME 85.2 fL (80.0-100.0); MEAN PLATELET VOLUME 8.3 fL (7.4-11.0); MONOCYTES # (AUTO) 0.8 x10^3/uL (0.3-0.8); MONOCYTES % (AUTO) 12.2 % (0.0-13.0); NEUTROPHILS % (AUTO) 72.6 % (42.0-75.0); PLATELET COUNT 153 X10^3/uL (150.0-450.0); RED BLOOD COUNT 3.71 X10^6/uL (4.7-6.0); WHITE BLOOD COUNT 6.9 X10^3/uL (3.6-10.0)
[2024-03-13 06:42] LABS: ALANINE AMINOTRANSFERASE 40 Units/L (12-78); ALBUMIN 2.3 g/dL (3.4-5.0); ALKALINE PHOSPHATASE 51 Units/L (46-116); ASPARTATE AMINO TRANSFERASE 53 Units/L (15-37); BLOOD UREA NITROGEN 18 mg/dL (7-18); CALCIUM 7.9 mg/dL (8.5-10.1); CARBON DIOXIDE 22.6 mmol/L (21-32); CHLORIDE 109 mmol/L (98-107); COR CA(FOR HYPOALB) 9.3 mg/dL (8.5-10.1); CREATININE 0.98 mg/dL (0.70-1.30); GLUCOSE 97 mg/dL (65-99); POTASSIUM 4.4 mmol/L (3.5-5.1); SODIUM 140 mmol/L (136-145); TOTAL PROTEIN 5.9 g/dL (6.4-8.2); eGFR NON BLACK RACES > 60 (>60)
[2024-03-13 10:04] VITALS: BP 144/65; PULSE 66; TEMP 98.1; O2SAT 95
== END 2024-03-13 11:10 | disposition home health service (06) ==
LOC: MED/SURG 19:40 → ER 19:40 → MED/SURG 03-09 05:58
PROVIDERS: ADMIT Family Medicine; ATTEND Family Medicine